=== PATIENT | female | born 1935 | race Two or more races ===

== ENCOUNTER 2021-02-02 14:21 | Emergency (ER) | payer OTHER ==
[~2021-02-02] VITALS: Ht 160 cm; Wt 54.4 kg
[~2021-02-02 14:21] MED LIST: CATAFLAM50 MG PO; ORPH100T PO
[2021-02-02] MEDS ORDERED: HYDROCHLOROTHIA25 MG (14:41)
[2021-02-02] MEDS ORDERED: TENORMIN100 M1 (14:41)
[2021-02-02] MEDS ORDERED: ATORVASTATIN CA10 MG (14:41)
[2021-02-02] MEDS ORDERED: TYLENOL ARTHRI650 MG (14:42)
== END 2021-02-02 16:15 | disposition home or self-care (01) ==
LOC: ER 14:21
DX: I87.2 Venous insufficiency (chronic) (peripheral) (principal); M79.605 Pain in left leg; M79.604 Pain in right leg

== ENCOUNTER 2025-05-26 09:15 | Emergency (ER) | payer OTHER ==
[~2025-05-26] VITALS: Ht 152.4 cm; Wt 46.3 kg
[~2025-05-26 09:15] MED LIST changes: +ATORVASTATIN CA10 MG; +HYDROCHLOROTHIA25 MG; +TENORMIN100 M1; +TYLENOL ARTHRI650 MG
[2025-05-26] MEDS ORDERED: LOSARTAN-HCTZ1 EAC2 PO (09:28)
[2025-05-26] MEDS ORDERED: CELEBREX200MG PO (09:31)
[2025-05-26] MEDS ORDERED: BACLOFEN10 MG PO (09:31)
[2025-05-26] MEDS ORDERED: KETOROLAC TROMETHAMINE 30 MG VIAL IV ONE (10:00)
[2025-05-26] MEDS ORDERED: 0.9 % SODIUM CHLORIDE 1,000 ML IV ONE (10:00)
[2025-05-26] MEDS ORDERED: FAMOtidine 10 MG/ML (4ML VIAL) IV ONE (10:00)
[2025-05-26 10:29] LABS: BASO % 0.5 % (0.1-1.2); EOS # 0.07 (0.04-0.54); EOS % 1.6 % (0.7-7.0); LYMPH # 0.60 (1.18-3.74); LYMPH % 13.9 % (19.3-53.1); MEAN PLATELET VOLUME 9.90 fl (9.4-12.4); MONO # 0.38 (0.24-0.82); MONO % 8.8 % (4.7-12.5); NEUT # 3.24 (1.56-6.13); NEUT % 75.0 % (34.0-71.1); RED CELL DISTRIBUTION WIDTH 14.1 % (11.6-14.4)
[2025-05-26 10:31] LABS: ERYTHROCYTE SEDIMENTATION RATE 18 mm/hr (0-30)
[2025-05-26 10:57] LABS: ALT/SGPT 21.0 U/L (12-78); AST/SGOT 19.0 U/L (15-37); BILIRUBIN TOTAL 1.18 mg/dL (0.3-1.2); BILIRUBIN,CONJUGATED 0.39 mg/dL (0.0-0.2); BUN CREA RATIO 16.0 (7.0-25.0); CREATININE SERUM 0.79 mg/dL (0.55-1.02); GFR 68.52; GLOBULINA 3.7 G/DL (2.4-3.5); GLUCOSE FASTING 106.0 mg/dL (65-100); OSMOLALITY SERUM 271.0 MOSM/KG (275-295)
[2025-05-26 11:54] LABS: INR 1.06
[2025-05-26 14:23] LABS: URINE APPEARANCE Clear; URINE BACTERIA 28.7 uL (0.0-1933); URINE BILIRRUBIN Negative (NEGATIVE); URINE BLOOD Negative; URINE COLOR Yellow; URINE EPITHELIAL CELLS 6.2 uL (0.0-38.8); URINE GLUCOSE Negative (NEGATIVE); URINE KETONE Negative (NEGATIVE); URINE LEUKOCYTE Negative; URINE NITRATE Negative; URINE PROTEIN Negative (NEGATIVE); URINE RBC 8.6 uL (0.0-20.8); URINE UROBILINOGEN 0.2 E.U./dl; URINE WBC 9.9 uL (0.0-23.2)
[2025-05-26 14:25] LABS: URINE CAST 0.43 uL (0.0-1.40)
[2025-05-26] MEDS ORDERED: PEPCID20 MG PO (14:35)
[2025-05-26] MEDS ORDERED: PROBIOTIC1 EAC2 PO (14:35)
[2025-05-26] MEDS ORDERED: LEVSIN/SL0.125 MG SL (14:35)
[2025-05-26] MEDS ORDERED: METRONIDAZOLE500 MG PO (14:35)
[2025-05-26] MEDS ORDERED: CIPRO500 MG PO (14:35)
== END 2025-05-26 14:43 | disposition home or self-care (01) ==
LOC: ER 09:15
PROVIDERS: General Practice
DX: K59.09 Other constipation (principal); R10.9 Unspecified abdominal pain; I10 Essential (primary) hypertension; Z91.018 Allergy to other foods
CPT/HCPCS: 36415; 71045; 74177; 74240; Q9965

== ENCOUNTER 2025-05-30 07:15 | Emergency (ER) | payer OTHER ==
[~2025-05-30] VITALS: Ht 154.9 cm; Wt 47.2 kg
[~2025-05-30 07:15] MED LIST changes: +BACLOFEN10 MG PO; +CELEBREX200MG PO; +CIPRO500 MG PO; +LEVSIN/SL0.125 MG SL; +LOSARTAN-HCTZ1 EAC2 PO; +METRONIDAZOLE500 MG PO; +PEPCID20 MG PO; +PROBIOTIC1 EAC2 PO
[2025-05-30] MEDS ORDERED: ONDANSETRON HCL 2 MG/ML VIAL IV STA (08:01)
[2025-05-30] MEDS ORDERED: ONDANSETRON HCL 2 MG/ML VIAL ONE (08:02)
== END 2025-05-30 11:35 | disposition home or self-care (01) ==
LOC: ER 07:16
DX: K59.00 Constipation, unspecified (principal); Z91.018 Allergy to other foods; R63.0 Anorexia